=== PATIENT | female | born 1980 | race American Indian/Alaskan Native ===

== ENCOUNTER 2016-11-01 11:20 | Outpatient (CLI) | payer OTHER | END 2016-11-01 13:03 | disposition home or self-care (01) | LOC: TRG 11:20 | PROVIDERS: ATTEND Obstetrics & Gynecology | DX: O09.523 Supervision of elderly multigravida, third trimester (principal); O47.1 False labor at or after 37 completed weeks of gestation; Z3A.38 38 weeks gestation of pregnancy | CPT/HCPCS: 59025 ==

== ENCOUNTER 2016-11-17 18:21 | Outpatient (CLI) | payer OTHER ==
[2016-11-17 18:47] VITALS: BP 111/68
--- NOTE | 2016-11-19 13:11 | Ultrasound Report ---
OB ULTRASOUND History: well being Technique: Transabdominal ultrasound with Doppler interrogation. Gestation: Single Position: Cephalic Amniotic Fluid: Normal MIGUELITO = 11.8 cm Placenta: Anterior Placental Grade: 1 Heart Rate: 150 BPM BPD: 9.6 cm = 39 w 0 d HC: 35.2 cm = 41 w 0 d AC: 36.4 cm = 40 w 2 d FL: 7.9 cm = 40 w 2 d HC/AC Ratio: 0.96 Estimated Weight: 4061 grams US Gest. Age = 40 w 1 d EDC: 11/16/16
== END 2016-11-17 21:01 | disposition home or self-care (01) ==
LOC: TRG 18:21
PROVIDERS: ATTEND Obstetrics & Gynecology Gynecology
DX: O09.513 Supervision of elderly primigravida, third trimester (principal); O48.0 Post-term pregnancy; Z3A.40 40 weeks gestation of pregnancy
CPT/HCPCS: 59025; 76816

== ENCOUNTER 2016-11-22 06:53 | Inpatient (IN) | payer OTHER ==
--- NOTE | 2016-11-22 07:24 | History and Physical Report ---
History of Present Illness Date of examination: 11/22/16 Chief complaint: Labor History of present illness: Pt is a 36yo BF EDC 11/16/16; EGA 40 6/7 weeks presents to L&D complaining of RUC's q 3-4 mins. She received late care at [facility] since 24 weeks and was followed by [facility] for Gestational Diabetes Mellitus. records are available, but GBS is unknown. Past History Past Medical History: diabetes (GDM) Past Surgical History: no surgical history Social history: no significant social history, - Obstetrical History Expected Date of Delivery: 11/16/16 Actual Gestation: 40 Week(s) 6 Day(s) : 3 Medications and Allergies Allergies Allergy/AdvReac Type Severity Reaction Status Date / Time No Known Allergies Allergy Verified 11/17/16 18:52 Home Medications Medication Instructions Recorded Confirmed Last Taken Type Ferrous Sulfate [Feosol 325 MG tab] 325 mg PO BID #60 tablet 11/22/16 Unknown Rx HYDROcodone/APAP 5-325 [[place] 1 each PO Q6HR PRN #30 tablet 11/22/16 Unknown Rx 5/325] Ibuprofen [Motrin] 800 mg PO Q8HR PRN #30 tablet 11/22/16 Unknown Rx Vit W-Ca,Fe,FA(<1 mg) 1 each PO DAILY #30 tablet 11/22/16 Unknown Rx [ Vitamins] Review of Systems All systems: negative - Vital Signs Vital signs: Vital Signs Pulse Pulse Ox 110 H 100 11/22/16 07:09 11/22/16 07:09 Temp Pulse Resp BP Pulse Ox 102 H 100 11/22/16 07:14 11/22/16 07:14 - Physical Exam Breasts: Positive: deferred Cardiovascular: Regular rate Lungs: Positive: Clear to auscultation Abdomen: Positive: normal appearance Genitourinary (Female): Positive: normal external genitalia Vagina: Positive: normal moisture Uterus: Positive: enlarged Extremities: Positive: normal - Obstetrical FHR: category 2 Uterine Contraction Monitor Mode: External Cervical Dilatation: 2 Cervical Effacement Percentage: 70 station: -3 Uterine Contraction Pattern: Regular Uterine Tone Measurement Phase: Contraction Uterine Contraction Intensity: Moderate Results Result Diagrams: 11/22/16 07:40 All other labs normal. Assessment and Plan - Patient Problems (1) 40 weeks gestation of Onset Date: 11/22/16 Current Visit: Yes Status: Acute Plan to address problem: A: IUP @ 40 6/7 weeks in labor Gestational Diabetes Mellitus Non-reassuring surveillance AMA P: Admit to L&D for a C Section (2) Gestational diabetes Onset Date: 11/22/16 Current Visit: Yes Status: Acute Qualifiers: Gestational diabetes mellitus control: diet-controlled Trimester: second trimester Qualified Code(s): O24.410 - Gestational diabetes mellitus in , diet controlled
[2016-11-22] MEDS: LACTATED RINGERS 1,000 ML IV SCH ×2 (07:40→08:25)
[2016-11-22] MEDS ORDERED: PITOCin/NS 30 UNIT/500ML 30 UNITS/500 ML BAG IV SCH ×2 (08:00)
[2016-11-22] MEDS ORDERED: MINERAL OIL PO PRN (08:00)
[2016-11-22] MEDS ORDERED: PHENERGAN PO PRN ×2 (08:00→09:00)
[2016-11-22] MEDS ORDERED: XYLOCAINE 2% INFILTRATI ONE (08:00)
[2016-11-22] MEDS ORDERED: ZOFRAN IV PRN ×2 (08:00→09:00)
[2016-11-22] MEDS ORDERED: STADOL IV PRN (08:00)
[2016-11-22] MEDS ORDERED: SUBLIMAZE IV PRN (08:00)
[2016-11-22] MEDS ORDERED: POLYCILLIN/NS 2 GM/100 ML 2 GM/100 ML BAG IV ONE (08:00)
[2016-11-22] MEDS ORDERED: BRETHINE IVP PRN (08:00)
[2016-11-22] MEDS ORDERED: ePHEDrine SULFATE IV PRN (08:00)
[2016-11-22] MEDS ORDERED: NARCAN 0.4 MG/1 ML IV PRN ×3 (08:00→11:00)
[2016-11-22 08:10] LABS: Hematocrit 36.3 % (30.3-42.9); Hemoglobin 12.6 gm/dl (10.1-14.3); Mean Corpuscular HGB Conc 35 % (30-34); Mean Corpuscular Hemoglobin 27 pg (28-32); Mean Corpuscular Volume 79 fl (79-97); Platelet Count 245 K/mm3 (140-440); Red Blood Count 4.58 M/mm3 (3.65-5.03); White Blood Count 9.6 K/mm3 (4.5-11.0)
--- NOTE | 2016-11-22 08:19 | Anesthesia Consultation ---
Anesthesia Consult and Med Hx Date of service: 11/22/16 - Airway Anesthetic Teeth Evaluation: Good ROM Head & Neck: Adequate Mental/Hyoid Distance: Adequate Mallampati Class: Class II Intubation Access Assessment: Good - Pulmonary Exam CTA: Yes - Cardiac Exam Cardiac Exam: No Murmur - Pre-Operative Health Status ASA Pre-Surgery Classification: ASA2 Proposed Anesthetic Plan: Spinal - Pulmonary Hx Asthma: No COPD: No Hx Pneumonia: No - Endocrine Hx End Stage Renal Disease: No
--- NOTE | 2016-11-22 08:20 | Anesthesia Day of Surgery ---
Anesthesia Day of Surgery - Day of Surgery Patient Examined: Yes Patient H&P Reviewed: Yes Patient is NPO: Yes
[2016-11-22] MEDS ORDERED: MORPHINE ONE (08:21)
[2016-11-22] MEDS ORDERED: ANCEF/STERILE WATER 2 GM/20 ML 2 GM/20 ML SYRINGE IV ONE ×2 (08:23→10:30)
[2016-11-22] MEDS ORDERED: BICITRA ONE (08:23)
[2016-11-22] MEDS ORDERED: PEPCID IV ONE (08:23)
[2016-11-22] MEDS ORDERED: REGLAN ONE (08:24)
[2016-11-22] MEDS ORDERED: BRETHINE SUB-Q PRN (08:30)
[2016-11-22] MEDS ORDERED: PEPCID IV NR (08:30)
[2016-11-22] MEDS ORDERED: ANCEF/STERILE WATER 2 GM/20 ML IV ONE (08:54)
[2016-11-22] MEDS ORDERED: PHENERGAN PR PRN (09:00)
[2016-11-22] MEDS ORDERED: NACL 0.9% IR ONE (09:00)
[2016-11-22] MEDS ORDERED: WATER FOR IRRIG STERILE IR ONE (09:00)
[2016-11-22] MEDS ORDERED: fentaNYL-BUPIV 2 MCG/ML-0.125% 200 MCG/100 ML BAG EPIDURAL SCH (09:00)
[2016-11-22] MEDS ORDERED: SODIUM CHLORIDE FLUSH SYRINGE 10 ML IV PRN ×2 (09:00→11:30)
[2016-11-22] MEDS ORDERED: BICITRA PO ONE (09:00)
[2016-11-22] MEDS ORDERED: REGLAN IV NR (09:00)
[2016-11-22] MEDS ORDERED: DILAUDID IV PRN ×2 (09:00)
[2016-11-22] MEDS ORDERED: ceFAZolin 2 GM in NACL 0.9% 100 ML IV ONE (09:04)
[2016-11-22] MEDS: PITOCin/NS 20 UNIT/1000ML DRIP 20 UNITS/1,000 ML BAG IV SCH ×2 (09:07→09:55)
--- NOTE | 2016-11-22 09:48 | Operative Report ---
Operative Report Operative Report: Date of procedure: 11/22/2016 Pre-operative diagnosis: 1. Intrauterine at 40-6/7 weeks in labor 2. Gestational diabetes mellitus 3. Nonreassuring surveillance 4. Advanced maternal age Post-operative diagnosis: Same Procedure name(s): Primary low transverse section Surgeon: Brock Arvizu MD Pie Dough Roller: None Anesthesia: Spinal anesthesia by Dr. Caitlin Giron EBL: 500 mls Findings: A 4372 g male Apgars 9 at 1 minute and 9 at 5 minutes. Clear amniotic fluid. Normal uterus. Normal tubes and ovaries bilaterally. Procedure: After the patient was prepped and draped in usual sterile fashion, and after satisfactory level of epidural anesthesia was obtained, the skin knife was used to make a transverse skin incision. The incision was excised down to layer of the fascia, which was nicked in the midline and extended laterally using the Bovie cautery. The rectus muscles were dissected off the rectus fascia both superiorly and inferiorly. The rectus bellies in the midline, and the peritoneum was entered under direct visualization. The peritoneal incision was extended superiorly and inferiorly. A bladder flap was created and the bladder blade was then placed. The uterus was scored in a curvilinear linear fashion, entered in the midline revealing clear amniotic fluid. The infant's head was delivered onto the surgical field, and the oropharynx and nasopharynx were bulb suctioned. The rest of the 's body was delivered, cord was doubly clamped and cut and the infant was handed to the waiting respiratory team. Cord blood was then obtained. The placenta was manually removed from the uterus, and the uterus removed from its normal anatomical position. After gentle uterine lavage, the incision was inspected and found to be without extensions. It was then closed in 2 layers using 0 Vicryl suture in a running interlocking fashion, the second layer imbricating the first. After good hemostasis was achieved, copious amounts or irrigation was performed, and the gutters were suctioned free of blood and blood clots. Tisseel sealant was sprayed across the uterine incision. The uterus was then returned to its normal anatomical position, and after excellent hemostasis assured, the peritoneum was re-approximated using 3-0 Vicryl suture in a running interlocking fashion, and then the rectus muscles were re-approximated using 3-0 Vicryl suture in a [id number] configuration. The fascia was then re-approximated using 0 Vicryl suture in running interlocking fashion. The subcutaneous layer was made hemostatic using Bovie cautery, the Tisseel sealant was sprayed across the fascial incision and the skin edges re- approximated using 4-0 Vicryl suture in a sub-cuticular fashion. Patient tolerated the procedure well was transported to recovery in stable condition.
[2016-11-22] MEDS ORDERED: LACTATED RINGERS 1,000 ML IV SCH (10:00)
[2016-11-22] MEDS ORDERED: NEO SYNEPHRINE/NS Syringe(OR USE) IV ONE (10:00)
[2016-11-22 10:20] LABS: HIV-1 Antigen p24 Non React (Non React); HIVR-1/2 Ab Non React (Non React)
[2016-11-22] MEDS ORDERED: PITOCin/NS 20 UNIT/1000ML DRIP 20 UNITS/1,000 ML BAG IV SCH (11:00)
[2016-11-22] MEDS ORDERED: D5LR 1,000 ML IV SCH (11:00)
[2016-11-22] MEDS ORDERED: TYLENOL PO PRN (11:00)
[2016-11-22] MEDS ORDERED: LANSINOH TP PRN (11:00)
[2016-11-22] MEDS ORDERED: TUCKS PAD TP PRN (11:30)
[2016-11-22] MEDS ORDERED: MYLICON PO PRN (11:30)
[2016-11-22] MEDS ORDERED: NORCO 5/325 PO PRN (11:30)
[2016-11-22] MEDS ORDERED: TORADOL IV PRN (12:00)
[2016-11-22] MEDS ORDERED: POLYCILLIN/NS 1 GM/50 ML 1 GM/50 ML BAG IV SCH (13:00)
[2016-11-22] MEDS: ANCEF/NS 1 GM/50 ML 1 GM/50 ML BAG IV SCH (18:00)
[2016-11-22 20:42] LABS: Hematocrit 32.8 % (30.3-42.9)
[2016-11-22] MEDS ORDERED: MILK OF MAGNESIA PO PRN (22:00)
[2016-11-22] MEDS ORDERED: SENOKOT PO PRN (22:00)
[2016-11-23] MEDS: ANCEF/NS 1 GM/50 ML 1 GM/50 ML BAG IV SCH (04:00)
[2016-11-23] MEDS: PERCOCET 5/325 PO PRN ×3 (05:30→21:59)
[2016-11-23] MEDS ORDERED: BOOSTRIX IM ONE (06:00)
--- NOTE | 2016-11-23 09:10 | Progress Note ---
Assessment and Plan - Patient Problems (1) 40 weeks gestation of Onset Date: 11/22/16 Current Visit: Yes Status: Resolved (2) Gestational diabetes Onset Date: 11/22/16 Current Visit: Yes Status: Chronic Qualifiers: Gestational diabetes mellitus control: diet-controlled Trimester: second trimester Qualified Code(s): O24.410 - Gestational diabetes mellitus in , diet controlled (3) Status post primary low transverse section Onset Date: 11/23/16 Current Visit: Yes Status: Resolved Plan to address problem: A: S/P C Section - POD #1 Doing well GDM - stable P: Continue RPOC Anticipate discharge to home in 24-48hrs Subjective - Subjective Date of service: 11/23/16 Principal diagnosis: s/p C Section - POD #1 Interval history: Pt is s/p C Section and feeling well. She is tolerating a reg diet without nausea or vomiting. Patient reports: appetite normal, voiding normally, pain well controlled, flatus , ambulating normally : doing well, nursing well Objective - Vital Signs Latest vital signs: Vital Signs Temp Pulse Resp BP BP Pulse Ox 11/23/16 05:30 16 11/23/16 04:15 98.8 F 88 18 101/63 11/23/16 02:04 16 11/23/16 00:00 98.2 F 94 H 18 107/60 11/22/16 20:45 98.7 F 91 H 18 103/60 11/22/16 16:25 98.6 F 74 20 107/65 11/22/16 11:00 98.1 F 80 20 110/66 11/22/16 10:46 84 22 111/69 98 11/22/16 10:44 98.3 F 11/22/16 10:40 82 17 104/71 99 11/22/16 10:35 86 15 121/69 98 11/22/16 10:30 87 17 119/65 99 11/22/16 10:25 88 16 124/57 99 11/22/16 10:20 84 15 115/65 98 11/22/16 10:16 87 14 108/63 98 11/22/16 10:10 91 H 11 L 111/55 98 11/22/16 10:05 95 H 13 111/55 97 11/22/16 10:00 103 H 20 61/31 98 11/22/16 09:56 107 H 15 105/63 98 11/22/16 09:50 98.0 F 100 H 16 98 11/22/16 09:49 106 H 13 97 Intake and Output 11/22/16 11/23/16 11/23/16 22:59 06:59 14:59 Intake Total 360 Output Total 900 800 Balance -540 -800 Intake: Oral 360 Output: Urine 600 800 Indwelling Catheter 600 Void 800 Emesis 300 Other: Total, Intake Amount 120 Total, Output Amount 600 800 # Voids Indwelling Catheter 1 - Exam Breasts: Present: deferred Cardiovascular: Present: Regular rate Lungs: Present: Clear to auscultation Abdomen: Present: normal appearance, soft Uterus: Present: normal, firm, fundal height below umbilicus Extremities: Present: normal Incision: Present: normal, dry, intact, dressed - Labs Labs: Laboratory Tests 11/22/16 11/22/16 11/22/16 07:40 07:40 07:40 WBC 9.6 RBC 4.58 Hgb 12.6 Hct 36.3 MCV 79 MCH 27 L MCHC 35 H RDW 16.0 H Plt Count 245 POC Glucose RPR Nonreactive HIV 1&2 Antibody Rapid HIV P24 Antigen Blood Type O NEGATIVE Antibody Screen Negative Screen 11/22/16 11/22/16 11/22/16 07:40 07:43 20:20 WBC RBC Hgb 11.0 Hct 32.8 MCV MCH MCHC RDW Plt Count POC Glucose 84 RPR HIV 1&2 Antibody Rapid Non react HIV P24 Antigen Non react Blood Type Antibody Screen Screen 11/22/16 20:20 WBC RBC Hgb Hct MCV MCH MCHC RDW Plt Count POC Glucose RPR HIV 1&2 Antibody Rapid HIV P24 Antigen Blood Type O NEGATIVE Antibody Screen Negative Screen Negative
[2016-11-23] MEDS: FEOSOL PO SCH (09:29)
[2016-11-23] MEDS: PRENATAL VITAMIN PO SCH (09:30)
[2016-11-23] MEDS ORDERED: BENADRYL PO PRN (09:30)
[2016-11-23] MEDS ORDERED: M-M-R II VACCINE SUB-Q ONE (11:00)
[2016-11-23] MEDS: MOTRIN PO PRN (21:58)
[2016-11-24] MEDS: MOTRIN PO PRN ×3 (05:25→23:46)
[2016-11-24] MEDS: PERCOCET 5/325 PO PRN ×3 (05:25→20:34)
--- NOTE | 2016-11-24 07:08 | Progress Note ---
Assessment and Plan POD # 2 P: -Is notified patient had a temp of 101 yesterday at 1 PM. It appears patient had oral temp after drinking hot Tea per RN. Plan at this point is to obtain CBC and delay discharge until at least 2 PM which will be 24 hours after recorded temp -Disposition of the result - Patient Problems (1) Status post primary low transverse section Onset Date: 11/23/16 Current Visit: Yes Status: Resolved Subjective - Subjective Date of service: 11/24/16 Principal diagnosis: s/p C Section - POD #2 Interval history: Seen and examined, stable doing well. No issues, desires discharge home Patient reports: appetite normal, voiding normally, pain well controlled, flatus , ambulating normally, no dizzy ambulation, no nauseated : doing well Objective - Vital Signs Latest vital signs: Vital Signs Temp Pulse Resp BP 11/24/16 01:06 98.2 F 86 18 114/67 11/23/16 23:00 99.2 F 11/23/16 21:40 101.9 F H 11/23/16 16:50 98.1 F 76 18 107/68 11/23/16 16:07 20 11/23/16 08:17 98.4 F 77 18 103/65 Intake and Output 11/23/16 11/24/16 11/24/16 22:59 06:59 14:59 Intake Total 240 Output Total 500 Balance -260 Intake: Oral 240 Output: Urine 500 Void 500 Other: Total, Intake Amount 240 Total, Output Amount 500 - Exam Abdomen: Present: normal appearance, soft. Absent: distention, tenderness, guarding, rigidity
[2016-11-24 08:16] LABS: Basophils % (Auto) 0.3 % (0.0-1.8); Eosinophils % (Auto) 1.9 % (0.0-4.3); Hematocrit 30.9 % (30.3-42.9); Hemoglobin 10.6 gm/dl (10.1-14.3); Mean Corpuscular HGB Conc 34 % (30-34); Mean Corpuscular Hemoglobin 27 pg (28-32); Mean Corpuscular Volume 80 fl (79-97); Platelet Count 245 K/mm3 (140-440); Red Blood Count 3.89 M/mm3 (3.65-5.03); Red Cell Distribution Width 16.1 % (13.2-15.2); White Blood Count 11.8 K/mm3 (4.5-11.0)
[2016-11-24] MEDS: PRENATAL VITAMIN PO SCH (10:52)
[2016-11-24] MEDS: FEOSOL PO SCH (10:52)
[2016-11-25] MEDS: MOTRIN PO PRN (05:46)
--- NOTE | 2016-11-25 09:13 | Event Note ---
Date: 11/25/16 No temp spike in ~ 24 hrs, will D/C home at this time.
--- NOTE | 2016-11-25 09:16 | Discharge Summary ---
Providers - Providers Date of Admission: 11/22/16 06:54 Date of discharge: 11/25/16 Attending physician: GRIS SAUER Primary care physician: GRIS SAUER Hospitalization Reason for admission: section Delivery: Procedure: primary low transverse Incision: dry, intact Other procedures: none complications: none Discharge diagnosis: IUP at term delivered [place] baby: male Hospital course: Uncomplicated hospital course Condition at discharge: Good Disposition: DC-01 TO HOME OR SELFCARE - Discharge Diagnoses (1) Status post primary low transverse section Status: Resolved Plan - Discharge Medications Prescriptions: Ferrous Sulfate [Feosol 325 MG tab] 325 mg PO BID #60 tablet HYDROcodone/APAP 5-325 [[place] 5/325] 1 each PO Q6HR PRN #30 tablet PRN Reason: Pain Ibuprofen [Motrin] 800 mg PO Q8HR PRN #30 tablet PRN Reason: Moder Pain Unrelieved By [place] Vit W-Ca,Fe,FA(<1 mg) [ Vitamins] 1 each PO DAILY #30 tablet - Provider Discharge Summary Activity: no sex for 6 weeks, no heavy lifting 4 weeks, no strenuous exercise Diet: routine Additional instructions: [] Smoking cessation referral if applicable(refer to patient education folder for contact #) [] Refer to [facility]'s [facility] Booklet Call your doctor immediately for: * Fever > 100.5 * Heavy vaginal bleeding ( >1 pad per hour) * Severe persistent headache * Shortness of breath * Reddened, hot, painful area to leg or breast * Drainage or odor from incision. * Keep incision clean and dry at all times and follow doctor's instructions regarding bathing/showering - Follow up plan Follow up: GRIS SAUER MD [Primary Care Provider] - 14 Days
[2016-11-25] MEDS: PRENATAL VITAMIN PO SCH (10:21)
[2016-11-25] MEDS: FEOSOL PO SCH (10:22)
[2016-11-25 19:19] VITALS: BP 116/78
== END 2016-11-25 15:50 | disposition home or self-care (01) | DRG 766 ==
LOC: TRG 06:53 → LD 06:54 → TRG 06:57 → OB 12:01
PROVIDERS: ADMIT Obstetrics & Gynecology Gynecology; ATTEND Obstetrics & Gynecology Gynecology
PROC: 10D00Z1 Extraction of Products of Conception, Low, Open Approach (ICD-10-PCS; principal; 2016-11-22)
PROC: 30233S1 Transfusion of Nonautologous Globulin into Peripheral Vein, Percutaneous Approach (ICD-10-PCS; 2016-11-22)
PROC: 3E0234Z Introduction of Serum, Toxoid and Vaccine into Muscle, Percutaneous Approach (ICD-10-PCS; 2016-11-23)
DX: O24.429 Gestational diabetes mellitus in childbirth, unspecified control (principal); O76 Abnormality in fetal heart rate and rhythm complicating labor and delivery; Z3A.40 40 weeks gestation of pregnancy; Z37.0 Single live birth; O09.523 Supervision of elderly multigravida, third trimester; Z23 Encounter for immunization
CPT/HCPCS: 36415; 82962; 85014; 85018; 85025; 85027; 85461; 86592; 86850; 86900; 86901; 87806; 88307; 90471; 90715; 99211; C9250; G0463; J0690; J1885; J2270; J2370; J2405; J2590; J2765; J2790; J7120; J7121

== ENCOUNTER 2017-10-02 17:53 | Emergency (ER) | payer SELFPAY ==
[2017-10-02 18:02] VITALS: BP 122/87
[2017-10-02 18:32] LABS: HCG Qualitative,Urine Negative (Negative)
[2017-10-02 18:33] LABS: Bilirubin,Urine NEG (Negative); Blood,Urine NEG (Negative); Color,Urine Yellow (Yellow); Protein,Urine <15 mg/dL mg/dL (Negative); Urobilinogen,Urine < 2.0 mg/dL (<2.0)
[2017-10-02 18:34] LABS: RBC,Urine < 1.0 /HPF (0.0-6.0)
== END 2017-10-02 22:23 | disposition left against medical advice (07) ==
LOC: ED 17:53
DX: R10.2 Pelvic and perineal pain (principal); Z53.21 Procedure and treatment not carried out due to patient leaving prior to being seen by health care provider
CPT/HCPCS: 81001; 81025